=== PATIENT | female | born 1965 | race Caucasian/White ===

== ENCOUNTER → 2017-10-29 | Outpatient (CLI) | payer BC ==
[~2017-10-29] MED LIST: NO HOME MEDICATIONS
== END ==
LOC: MC.RAD 09:33
DX: Z12.31 Encounter for screening mammogram for malignant neoplasm of breast (principal); N64.89 Other specified disorders of breast; Z98.890 Other specified postprocedural states; Z85.3 Personal history of malignant neoplasm of breast

== ENCOUNTER → 2017-10-31 | Outpatient (CLI) | payer BC | LOC: MC.RAD 07:25 | DX: R92.8 Other abnormal and inconclusive findings on diagnostic imaging of breast (principal) ==

== ENCOUNTER → 2018-05-04 | Outpatient (CLI) | payer BC | LOC: MC.RAD 04-17 09:30 | DX: N63.24 Unspecified lump in the left breast, lower inner quadrant (principal) ==

== ENCOUNTER → 2018-05-06 | Outpatient (CLI) | payer BC | LOC: MC.RAD 09:47 | DX: C50.312 Malignant neoplasm of lower-inner quadrant of left female breast (principal) ==

== ENCOUNTER 2018-05-29 06:51 | Day surgery (SDC) | payer BC ==
[~2018-05-29] VITALS: Ht 167.6 cm; Wt 73.7 kg
[2018-05-29] VITALS (7 sets, daily range): BP systolic 100–120; BP diastolic 63–82; PULSE 60–97; TEMP 97.9–98.8
[2018-05-29] MEDS ORDERED: IMITREX50 MG PO (09:30)
[2018-05-29] MEDS ORDERED: SYNTHROID0.075 MG/T PO (09:30)
[2018-05-29] MEDS ORDERED: NORCO 325 MG-51 TAB PO (12:42)
== END 2018-05-29 15:00 | disposition home or self-care (01) ==
LOC: SDCO 06:51
DX: C50.312 Malignant neoplasm of lower-inner quadrant of left female breast (principal); E03.9 Hypothyroidism, unspecified; G89.29 Other chronic pain; G43.909 Migraine, unspecified, not intractable, without status migrainosus; F17.210 Nicotine dependence, cigarettes, uncomplicated; Z17.0 Estrogen receptor positive status [ER+]; Z90.11 Acquired absence of right breast and nipple; Z80.0 Family history of malignant neoplasm of digestive organs; Z80.8 Family history of malignant neoplasm of other organs or systems; Z80.3 Family history of malignant neoplasm of breast; Z80.49 Family history of malignant neoplasm of other genital organs
CPT/HCPCS: A9541; J0690; J1100; J2270; J2405; J2704; J3010; J7120

== ENCOUNTER → 2018-12-08 | Outpatient (CLI) | payer BC ==
[~2018-12-08] MED LIST changes: +IMITREX50 MG PO; +NORCO 325 MG-51 TAB PO; +SYNTHROID0.075 MG/T PO
== END ==
LOC: MC.RAD 13:59
DX: C50.412 Malignant neoplasm of upper-outer quadrant of left female breast (principal); Z92.3 Personal history of irradiation; Z98.890 Other specified postprocedural states
CPT/HCPCS: G0279

== ENCOUNTER → 2019-12-13 | Outpatient (CLI) | payer BC | LOC: MC.RAD 15:00 | DX: Z12.31 Encounter for screening mammogram for malignant neoplasm of breast (principal) ==

== ENCOUNTER → 2020-12-14 | Outpatient (CLI) | payer BC | LOC: MC.RAD 08:17 | DX: Z12.31 Encounter for screening mammogram for malignant neoplasm of breast (principal); Z86.000 Personal history of in-situ neoplasm of breast ==